=== PATIENT | male | born 2000 | race Caucasian/White ===

== ENCOUNTER 2023-04-02 09:48 | Emergency (ER) | payer BC, SELFPAY ==
[2023-04-02 09:49] VITALS: BP 129/83; PULSE 108; RESP 16; TEMP 36.3; O2SAT 98; BMI 23.4
--- NOTE | 2023-04-02 10:16 | EDS_ITS ---
HPI HPI - GI History of Present Illness Chief Complaint: Abd Pain Abdominal Pain/Flank Pain Onset: Today Context: Sudden Onset Timing: Continuous Quality: Sharp Location: Epigastric Worsened by: Movement Relieved by: - (Vomiting) Nausea/Vomiting/Emesis GI Symptom: Positive for Nausea and Vomiting Onset: Today Quality: Positive for Coffee ground Diarrhea/Melena/Hematochezia GI Symptom: Positive for Diarrhea; Negative for Melena or Hematochezia Onset: Today Associated Symptoms Associated Symptoms: Negative for Dysuria, Frequency or Hematuria Narrative Narrative: Patient presents with nausea, vomiting, diarrhea, and abdominal pain that began this morning. Patient states it began rather suddenly. Patient states it has been constant since this morning. Patient states that it is mainly over the epigastric area. Patient states he has been having some vomiting. Patient states his vomiting started out as nonbilious and undigested stomach contents. Patient states that the last couple times he vomited it was dark and coffee- ground appearance. Patient admits to some diarrhea. Patient denies any melena or hematochezia. Patient denies any dysuria or hematuria. Patient denies any fevers or chills. Patient denies any radiation of the pain into his back. PFSH PFSH Medical History no medical history Home Medications omeprazole 20 mg capsule,delayed release 20 mg PO DAILY #30 CAPSULES 04/02/23 [Rx Last Taken Unknown] Allergy/AdvReac Type Severity Reaction Status Date / Time No Known Allergies Allergy Verified 04/02/23 10:09 Surgical History (Updated 04/02/23 @ 10:[address] Rashaun Sandoval DO) Hx of arthroscopic knee surgery Surgical History no surgical history Social History Smoking Status: Never smoker ROS ROS ED Constitutional Constitutional ED: Denies chills or fever(s) Eyes Eyes: Denies blurry vision or change in vision ENT ENT ED: Denies rhinorrhea or sore throat Cardiovascular Cardiovascular: Denies chest pain or palpitations Respiratory/Chest Respiratory/Chest: Denies cough or dyspnea Gastrointestinal Gastrointestinal: Reports abdominal pain, diarrhea, nausea and vomiting Genitourinary Genitourinary ED: Denies dysuria or hematuria Musculoskeletal Musculoskeletal: Reports back pain; Denies neck pain Integumentary Denies abscess or rash Neurologic Neurologic: Denies headache(s) or weakness Allergic/Immunologic Allergic/Immunologic ED: Denies mouth swelling or urticaria EXAM Physical Exam Const Vital Signs: 04/02/23 09:49 Temperature 97.3 F L Temperature Source Temporal Pulse Rate 108 H Respiratory Rate 16 Blood Pressure 129/83 H Blood Pressure Mean 98 Pulse Ox 98 Oxygen Delivery Method Room Air Positive well nourished and well developed General Appearance ED: well developed and NAD HEENT Reports moist mucous membranes Neck supple and no JVD Resp normal respiratory effort and clear to auscultation bilaterally Cardio regular rate, regular rhythm and no murmurs GI normal to inspection, nondistended, normoactive bowel sounds Palpation: soft, tender epigastric, LUQ and RUQ and guarding; Negative for rebound tenderness present Rectal Exam: visual inspection normal, normal sphincter tone and prostate nor mal; Negative for abnormal stool Extremity normal to inspection General Extremety ED: Negative for edema or tenderness General Extremity: Negative for edema Neuro oriented x3, CN's II-XII intact bilaterally, moves all extremities and no sensory deficits noted Sensorium / Orientation: alert Motor Exam: strength 5/5 throughout Psych mental status grossly normal Skin no rashes or lesions noted MDM MDM MDM Narrative Medical decision making narrative: Differential diagnosis includes gastritis, gastric ulcer, duodenal ulcer, pancreatitis, cholecystitis, cholelithiasis, bowel obstruction, and perforation. CBC will be obtained to assess for leukocytosis and anemia. Comprehensive metabolic profile will be obtained to assess for hepatic function, renal function, and electrolyte abnormality. Lipase will be obtained to assess for pancreatitis. Urinalysis will be obtained to assess for urinary tract infection. CT scan of the abdomen pelvis will be obtained to assess for bowel obstruction and perforation. Stool for occult blood will be obtained to assess for gastrointestinal bleeding. Lab Data Attestation: I reviewed the patient's lab results. Lab results narrative: CBC was reviewed and shows a mild leukocytosis of 13.3. Hemoglobin was stable at 17.9 and hematocrit of 53.5. Comprehensive metabolic profile was reviewed. Total bilirubin was slightly elevated at 1.3. Alkaline phosphatase was slightly elevated at 126. The remainder was within normal limits. Urinalysis was reviewed and does not show any evidence of urinary tract infection or hematuria. Lipase was reviewed and was normal at 22. Stool occult blood was reviewed and was positive for occult blood. Labs: Laboratory Results - last 24 hr 04/02/23 04/02/23 04/02/23 09:55 09:55 11:09 WBC 13.3 H RBC 5.93 Hgb 17.9 H Hct 53.5 MCV 90.2 MCH 30.2 MCHC 33.5 RDW Std Deviation 40.1 RDW Coeff of [place]ita 12.1 Plt Count 212 MPV 11.0 Immature Gran % (Auto) 0.400 Neut % (Auto) 91.3 H Lymph % (Auto) 2.9 L [place] % (Auto) 4.7 Eos % (Auto) 0.5 Baso % (Auto) 0.2 Absolute Neuts (auto) 12.2 H Absolute Lymphs (auto) 0.38 L Nucleated RBC % 0 Differential Comment SCANNED Sodium 140 Potassium 4.5 Chloride 105 Carbon Dioxide 26.0 Anion Gap 9 BUN 17 Creatinine 1.09 Estim Creat Clear Calc 111.62 Est GFR (MDRD) Af Amer 110 Est GFR (MDRD) Non-Af 91 BUN/Creatinine Ratio 15.6 Glucose 104 Calcium 9.5 Total Bilirubin 1.30 H AST 20 ALT 26 Alkaline Phosphatase 126 H Total Protein 7.7 Albumin 4.3 Globulin 3.4 Albumin/Globulin Ratio 1.3 Lipase 22 Urine Color Yellow Urine Clarity Clear Urine pH 7.0 Ur Specific [place] 1.010 Urine Protein Negative Urine Glucose (UA) Normal Urine Ketones Negative Urine Occult Blood Negative Urine Nitrite Negative Urine Bilirubin Negative Urine Urobilinogen Normal Ur Leukocyte Esterase Negative Urine RBC 0 SEEN Urine WBC 0 SEEN Ur Squamous Epith Cells 0 SEEN Urine Bacteria 0 SEEN Urine Mucus 0 SEEN Radiography Diagnostic Testing: Clinical Impression(s) from Imaging Studies Abdomen/Pelvis CT 04/02/23 10:22 IMPRESSION: Large amount of fecal material is seen. Electronically Signed: Vaibhav Cordero MD at 12:26 EDT , CT scan of the abdomen and pelvis was obtained. There is a large amount of fecal material noted. There is no evidence of perforation or obstruction. There is no free air or free fluid. This was interpreted by the radiologist and was also independently reviewed by myself. Treatment and Re-Evaluation :: Patient was given IV fluids, morphine, and Zofran. Patient is feeling better on reevaluation. Patient was advised of his findings. Patient was given a prescription for omeprazole. Patient was instructed to start with a bland diet and advance as tolerated. Patient was instructed to follow-up with his primary care physician in 5 to 7 days. Patient understood and was agreeable with the plan. All questions were answered. Discharge Plan Triage Chief Complaint: Abd Pain Other Complaint: Nausea/Vomiting ED Provider: Rashaun Sandoval Dx/Rx/DC Orders Clinical Impression: Abdominal pain, acute, epigastric, Upper gastrointestinal bleeding Instructions: ED Upper GI Bleeding (Stable), ED Epigastric Pain Uncertain Cause Prescriptions: New omeprazole [omeprazole] 20 mg capsule,delayed release(DR/EC) 20 mg PO DAILY Qty: 30 0RF Primary Care Provider: Care Physician,No Primary Referrals: Rashaun Gaona MD [Med Staff - [facility]] - 5-7 Days Natan Hobson DO [Med Staff - Active Staff] - 5-7 Days Care Physician,No Primary [Primary Care Provider] - Disposition Disposition: Home, Self Care
--- NOTE | 2023-04-02 10:22 | CT_ITS ---
STUDY: CT ABDOMEN AND PELVIS WITH CONTRAST REASON FOR EXAM: Male, 22 years old. Upper abdominal pain with nausea and vomiting. Elevated blood cell count. RADIATION DOSAGE (If Supplied By Facility): CTDIvol = ( 17.16 ) mGy, DLP = ( 602.83 ) mGycm TECHNIQUE: Transaxial images were obtained from the dome of the diaphragm to the symphysis pubis with oral contrast. Oral and amp; IV Gastrografin and amp; 100mL Isovue-300 was administered. Sagittal and coronal images were reconstructed. Individualized dose optimization techniques were used for this CT. COMPARISON: None. FINDINGS: The visualized lung bases are unremarkable. The visualized portions of the heart are within normal limits. Normal liver. Normal gallbladder and extrahepatic biliary system. Normal spleen. Normal pancreas. Normal bilateral adrenal glands. Normal right kidney. Normal left kidney. Normal visualized stomach. Normal small intestine. Large amount of fecal material is seen in the colon. The appendix is visualized and appears normal. Normal abdominal aorta. Normal inferior vena cava. Normal retroperitoneum. Normal urinary bladder. Normal abdominal wall. Normal osseous structures. CT/Abdomen/Pelvis WITH Contrast IMPRESSION: Large amount of fecal material is seen. Electronically Signed: Vaibhav Cordero MD at 12:26 EDT ,
[2023-04-02 10:31] LABS: Absolute Lymphocyte Count 0.38 X10^3/uL (0.83-4.51); Absolute Neutrophil Count 12.2 X10^3/uL (2.0-7.7); Basophil# 0.02 X10^3/uL; Basophil% 0.2 % (0-1); Eosinophil# 0.07 X10^3/uL; Eosinophils% 0.5 % (0-5); Hematocrit 53.5 % (40-54); Hemoglobin 17.9 g/dL (13.0-16.5); Lymphocyte # 0.38 X10^3/ul (0.83-4.51); Lymphocyte % 2.9 % (19-41); Mean Corp Hgb Conc 33.5 g/dL (32-36); Mean Corpuscular Hgb 30.2 pg (27.0-32.0); Mean Corpuscular Volume 90.2 fL (80-94); Monocyte# 0.63 X10^3/uL; Monocyte% 4.7 % (0-10); NRBC Flagged by Analyzer 0 % (0-5); Neutrophil # 12.15 X10^3/uL (2.7-7.7); Neutrophil % 91.3 % (47-70); POSITIVE DIFFERENTIAL YES; Platelet Count 212 K/mm3 (150-450); RBC Distribution Width CV 12.1 % (11.6-14.6); RBC Distribution Width SD 40.1 fl (35.1-43.9); Red Blood Count 5.93 M/mm3 (4.6-6.2); White Blood Count 13.3 K/mm3 (4.4-11.0)
[2023-04-02] MEDS: 0.9% Normal Saline 1,000 ML 1000 ML IV (10:33)
[2023-04-02] MEDS: Ondansetron 4 MG/2 ML Vial IV (10:33)
[2023-04-02] MEDS: Morphine 4 MG/ML Syringe IV (10:33)
[2023-04-02 10:36] LABS: Differential Indicated SCAN CRITERIA MET
[2023-04-02 10:48] LABS: ALB/GLOB Ratio 1.3 RATIO (0.9-2.4); AST(SGOT) 20 U/L (15-37); Alanine Aminotransfer ALT/SGPT 26 U/L (16-61); Albumin, Serum 4.3 g/dL (3.2-5.0); Alkaline Phosphatase 126 U/L (45-117); Anion Gap 9 (5-15); BUN 17 mg/dL (7-18); BUN/Creat Ratio 15.6 RATIO (10-20); Calcium,Total 9.5 mg/dL (8.5-10.1); Chloride 105 mmol/L (98-107); Creatinine, Serum 1.09 mg/dL (0.70-1.30); EST Glomerular Filtration Rate 91 mL/min (>60); Est Glom Filt Rate - Afr Amer 110 mL/min (>60); Estimated Creatinine Clearance 111.62 ml/min; Globulin 3.4 g/dL (2.2-4.2); Glucose 104 mg/dL (74-106); Lipase 22 U/L (13-75); Potassium 4.5 mmol/L (3.5-5.1); Protein, Total 7.7 g/dL (6.4-8.2); Sodium Level 140 mmol/L (136-145)
[2023-04-02 11:14] LABS: Bacteria 0 SEEN /hpf (None Seen); Mucous, Urine 0 SEEN /hpf (<or=2+); Red Blood Cells-Urine 0 SEEN /hpf (0-5); Squamous Epithelial Cells - UA 0 SEEN /hpf (0-5); White Blood Cells 0 SEEN /hpf (0-5)
[2023-04-02 11:16] LABS: Color, Urine Yellow (Yellow); Glucose, Dipstick Normal (Normal); Ketone-Dipstick Negative (Negative); Leukocyte Esterase-Dipstick Negative /ul (Negative); Nitrite-Dipstick Negative (Negative); Occult Blood-Urine Negative /ul (Negative); Protein-Dipstick Negative (Negative); Urine Bilirubin Dipstick Negative (Negative); Urine Clarity Clear (Clear); Urine Urobilinogen Normal (Normal)
[2023-04-02 11:19] LABS: Differential Comment SCANNED
[2023-04-02] MEDS: Pantoprazole Sodium 40 MG Tablet PO (13:11)
== END 2023-04-02 13:29 | disposition home or self-care (01) ==
PROVIDERS: Emergency Provider Emergency Medicine; Visit Provider Emergency Medicine
DX: R10.13 Epigastric pain (principal); K92.2 Gastrointestinal hemorrhage, unspecified
CPT/HCPCS: 74177; 80053; 81001; 82274; 83690; 85025; 96361; 96374; 96375; 99284; J7030; Q9967; A4216; J2405